=== PATIENT | female | born 2000 | race Caucasian/White ===

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

== ENCOUNTER → 2020-11-03 | Outpatient (CLI) | payer OTHER ==
--- NOTE | 2020-12-06 19:10 | EM ---
EVENT MONITOR Patient was monitored between November 03 and December 03, 2018. The rhythm strip revealed a sinus mechanism with no evidence of atrial fibrillation or ventricular tachycardia. Normal conduction was noted. No pauses were noted. MIKEL / IJN: [id number] /
== END | disposition home or self-care (01) ==
LOC: RADECHMAIN 11:57
PROVIDERS: ATTEND Family Medicine
DX: R00.2 Palpitations (principal)
CPT/HCPCS: 93270

== ENCOUNTER → 2021-11-01 | Outpatient (CLI) | payer OTHER ==
--- NOTE | 2021-11-01 12:41 | XR ---
EXAMINATION TYPE: XR Hip Bilateral Complete DATE OF EXAM: 11/01/2021 COMPARISON: NONE HISTORY: Pain TECHNIQUE: 2 views submitted FINDINGS: There is no evidence of erosive change or acute fracture. No intraosseous lesion. Joint spaces are preserved. SI joints appear symmetric. Visualized sacral for renu. IMPRESSION: 1. No acute osseous abnormality, if symptoms persist correlate with MRI.
== END | disposition home or self-care (01) ==
LOC: RADXRMAIN 12:17
PROVIDERS: ATTEND Family Medicine
DX: M25.551 Pain in right hip (principal)
CPT/HCPCS: 73521

== ENCOUNTER → 2021-11-16 | Outpatient (CLI) | payer OTHER ==
--- NOTE | 2021-11-16 09:05 | USB ---
Reason for Exam: Clinical finding. Findings: The whole breast of both breasts, the axilla of both breasts and the retroareolar of both breasts were scanned. Whole bilateral breast ultrasound including evaluation of subareolar and axillary regions shows no worrisome solid or cystic mass or fluid collection.. Overall Assessment: Negative, BI-RAD 1 Management: Screening Mammogram of both breasts at age 40. Managed patient clinical symptoms on clinical basis. Return to routine follow-up. Patient told the findings and recommendations at time of dictation. Electronically signed and approved by: Jack Gomez M.D.
== END | disposition home or self-care (01) ==
LOC: RADUSWWP 08:17
PROVIDERS: ATTEND Family Medicine
DX: N64.4 Mastodynia (principal)